=== PATIENT | female | born 2000 | race Two or more races ===

== ENCOUNTER 2022-03-17 18:54 | Emergency (ER) | payer MEDICAID ==
[2022-03-17] MEDS ORDERED: Sodium Chloride 0.9% 10 ML Syringe FLUSH PRN (20:02)
[2022-03-17] MEDS ORDERED: Ketorolac 30 MG/ML SDV IVPUSH ONE (20:02)
== END 2022-03-17 21:20 | disposition home or self-care (01) ==
LOC: JD.ED 18:54
DX: R07.89 Other chest pain (principal)
CPT/HCPCS: 36415; 71046; 80053; 84484; 85025; 85379; 93005; 96374; 99285; J1885

== ENCOUNTER 2022-08-07 10:48 | Emergency (ER) | payer MEDICAID ==
[2022-08-07] MEDS ORDERED: predniSONE 20 MG Tab PO ONE (13:46)
[2022-08-07] MEDS ORDERED: Famotidine 20 MG Tab PO ONE (13:48)
[2022-08-07] MEDS ORDERED: diphenhydrAMINE 50 MG Cap PO ONE (13:48)
== END 2022-08-07 13:58 | disposition home or self-care (01) ==
LOC: JD.ED 10:48
DX: L50.9 Urticaria, unspecified (principal)
CPT/HCPCS: 99282

== ENCOUNTER 2023-10-29 10:35 | Emergency (ER) | payer MEDICAID, OTHER ==
[2023-10-29] MEDS: Iopamidol 612 MG/ML 100 ML Bottle IVPUSH ONE (11:02)
[2023-10-29 11:49] LABS: BASOPHILS PERCENT AUTO 0.2 % (0.0-1.0); EOSINOPHILS ABSOLUTE AUTO 0.1 K/mm3 (0.0-0.4); EOSINOPHILS PERCENT AUTO 0.6 % (0.0-6.0); HEMATOCRIT 39.4 % (37.0-47.0); HEMOGLOBIN 12.8 gm/dl (12.0-16.0); IMMATURE GRAN ABSOLUTE AUTO 0.04 K/mm3 (0.00-0.05); IMMATURE GRAN PERCENT AUTO 0.3 % (0.0-0.4); LYMPHOCYTES ABSOLUTE AUTO 1.9 K/mm3 (1.0-4.8); LYMPHOCYTES PERCENT AUTO 14.6 % (24.0-44.0); MEAN CORPUSCULAR HEMOGLOBIN 25.5 pg (28.0-32.0); MEAN CORPUSCULAR HGB CONC 32.5 g/dl (32.0-36.0); MEAN PLATELET VOLUME 8.7 fl (9.4-12.3); MONOCYTES ABSOLUTE AUTO 0.8 K/mm3 (0.0-0.8); MONOCYTES PERCENT AUTO 5.9 % (0.0-8.0); NEUTROPHILS ABSOLUTE AUTO 10.1 K/mm3 (1.8-7.7); NEUTROPHILS PERCENT AUTO 78.4 % (41.0-71.0); RED BLOOD CELL COUNT 5.01 M/mm3 (4.10-5.30); WHITE BLOOD CELL COUNT,WBC 12.84 K/mm3 (3.9-11.3)
[2023-10-29 11:50] LABS: MEAN CORPUSCULAR VOLUME 78.6 fl (83.0-99.0); PLATELET COUNT,PLT 336 K/mm3 (150-400)
[2023-10-29 11:56] LABS: INR 1.15; PROTHROMBIN TIME 12.2 SECONDS (9.7-12.0)
[2023-10-29 12:01] LABS: APPEARANCE,URINE CLEAR (Clear); BILIRUBIN,URINE NEGATIVE (Negative); COLOR,URINE YELLOW (Yellow); GLUCOSE,URINE NEGATIVE (Negative); KETONES,URINE TRACE (Negative); LEUKOCYTE ESTERASE,URINE NEGATIVE (Negative); NITRITE,URINE NEGATIVE (Negative); OCCULT BLOOD,URINE NEGATIVE (Negative); PH,URINE 5.5 (5.0-8.0); PROTEIN,URINE NEGATIVE (Negative); UROBILINOGEN,URINE 0.2 (0.2-1.0)
[2023-10-29 12:08] LABS: ALBUMIN 3.7 g/dl (3.4-5.0); ANION GAP 14.2 (5-15); BILIRUBIN TOTAL 0.4 mg/dL (0.2-1.0); BUN/CREATININE RATIO 16.3 (14-18); CALCIUM 8.8 mg/dL (8.5-10.1); CREATININE 0.8 mg/dL (0.55-1.02); EST CRCL DRUG DOSING (CG) 91.24 mL/min; POTASSIUM,K 4.2 mEq/L (3.5-5.1); PROTEIN TOTAL,TP 7.5 g/dl (6.4-8.2)
[2023-10-29] MEDS: Sodium Chloride 0.9% 10 ML Syringe FLUSH PRN (12:30)
== END 2023-10-29 14:36 | disposition home or self-care (01) ==
LOC: JD.ED 10:35
DX: Z04.1 Encounter for examination and observation following transport accident (principal); Z79.899 Other long term (current) drug therapy
CPT/HCPCS: 36415; 70450; 71260; 72125; 80053; 81003; 81025; 85025; 85610; 99284; J3490; Q9967